=== PATIENT | female | born 1945 ===

== ENCOUNTER 2025-11-03 17:07 | Inpatient (IN) | payer MEDICARE, BC ==
[~2025-11-03] VITALS: Ht 167.6 cm; Wt 75.3 kg
[2025-11-03 17:13] VITALS: BP 147/75
[2025-11-03] MEDS: IV NORMAL SALINE 1000 ML BAG IV ONE (17:45)
[2025-11-03] MEDS ORDERED: MAGN200T5 PO (17:52)
[2025-11-03] MEDS ORDERED: OMEG-49 PO (17:52)
[2025-11-03] MEDS ORDERED: METO25TA3 PO (17:52)
[2025-11-03] MEDS ORDERED: CLOP-31 PO (17:52)
[2025-11-03] MEDS ORDERED: CHOL500050 PO (17:52)
[2025-11-03] MEDS ORDERED: VITA400T9 PO (17:52)
[2025-11-03] MEDS ORDERED: BUPR100T5 PO (17:52)
[2025-11-03] MEDS ORDERED: PRAM0.129 PO (17:52)
[2025-11-03] MEDS ORDERED: PANT20TA2 PO (17:52)
[2025-11-03] MEDS ORDERED: PREG100C PO (17:52)
[2025-11-03] MEDS ORDERED: ACYC-106 PO (17:52)
[2025-11-03] MEDS ORDERED: gemtesa PO (17:52)
[2025-11-03] MEDS ORDERED: CARB1TAB33 PO ×2 (17:52)
[2025-11-03] MEDS ORDERED: ASPI81TA31 PO (17:52)
[2025-11-03] MEDS ORDERED: TRAZ-182 PO (17:52)
[2025-11-03] MEDS ORDERED: MELA10TA3 PO (17:52)
[2025-11-03] MEDS ORDERED: ASCO500C18 PO (17:52)
[2025-11-03] MEDS ORDERED: ATOR80TA PO (17:52)
[2025-11-03] MEDS ORDERED: PREG-233 PO (17:52)
[2025-11-03 18:10] LABS: PLATELET COUNT (AUTO) 228 K/uL (179-408); RED BLOOD CELL COUNT(AUTO) 4.26 MIL/uL (3.63-4.92); RED CELL DISTRIBUTION WIDTH 14.4 % (12.3-17.7); WHITE BLOOD COUNT (AUTO) 8.3 K/uL (3.8-11.8)
[2025-11-03 18:16] LABS: CREATININE 0.9 mg/dL (0.6-1.3); SODIUM SERUM 140 mmol/L (136-145); UREA NITROGEN, BLOOD 21 mg/dL (7-18)
[2025-11-03] MEDS ORDERED: PRAM0.7519 PO (18:24)
[2025-11-03] MEDS ORDERED: MELA5TAB20 PO (18:29)
[2025-11-03] MEDS ORDERED: MELA3TAB41 PO (18:29)
[2025-11-03] MEDS ORDERED: ONDANSETRON 4 MG/2 ML VIAL IV PRN (18:30)
[2025-11-03] MEDS ORDERED: ACETAMINOPHEN 325 MG TABLET PO PRN (18:30)
[2025-11-03] MEDS ORDERED: NITR0.4T48 SL (18:32)
[2025-11-03] MEDS ORDERED: GLUC500T12 PO (18:34)
[2025-11-03] MEDS ORDERED: [UNRECOGNIZED DRUG - CODE] PO (18:34)
[2025-11-03] MEDS ORDERED: ZINC220T3 PO (18:35)
[2025-11-03] MEDS ORDERED: VITA-287 PO (18:35)
[2025-11-03 19:02] LABS: *BILIRUBIN,URIN NEGATIVE (NEGATIVE); *BLOOD, URINE NEGATIVE (NEGATIVE); *CLARITY,URINE CLEAR (CLEAR); *COLOR,URINE YELLOW (YELLOW); *KETONES,URINE NEGATIVE (NEGATIVE); *PROTEIN,URINE NEGATIVE (NEGATIVE); *UROBILINOGEN,URINE 0.2 E.U./dl (NORMAL); LEUKOCYTE ESTERASE ,URINE NEGATIVE (NEGATIVE); NITRITE, URINE NEGATIVE (NEGATIVE); UGLUCOSE NEGATIVE (NEGATIVE)
[2025-11-03] MEDS: CARBIDOPA/LEVODOPA 25-100MG TABLET PO SCH (20:51)
[2025-11-03] MEDS: ATORVASTATIN 40 MG TABLET PO SCH (20:51)
[2025-11-03] MEDS: PREGABALIN 100 MG CAPSULE PO SCH (20:51)
[2025-11-03] MEDS: TRAZODONE 50 MG TABLET PO SCH (20:51)
[2025-11-03 21:00] VITALS: BP 154/83; TEMP 98.4; O2SAT 97
[2025-11-03] MEDS: PRAMIPEXOLE 0.25 MG TABLET PO SCH (22:07)
[2025-11-04] VITALS: BP 133/71; TEMP 97.6; O2SAT 93
[2025-11-04 04:00] VITALS: BP 144/75; TEMP 98.1; O2SAT 94
[2025-11-04 06:48] LABS: PLATELET COUNT (AUTO) 205 K/uL (179-408); RED BLOOD CELL COUNT(AUTO) 4.04 MIL/uL (3.63-4.92); RED CELL DISTRIBUTION WIDTH 14.0 % (12.3-17.7); WHITE BLOOD COUNT (AUTO) 6.4 K/uL (3.8-11.8)
[2025-11-04 06:57] LABS: ASPARTATE AMINOTRANSFERASE 20 U/L (15-37); CREATININE 0.8 mg/dL (0.6-1.3); SODIUM SERUM 132 mmol/L (136-145); TOTAL PROTEIN, SERUM 6.8 g/dL (6.4-8.2); UREA NITROGEN, BLOOD 16 mg/dL (7-18)
[2025-11-04 08:12] VITALS: BP 133/76; TEMP 97.9; O2SAT 93
[2025-11-04] MEDS: buPROPion SR 100 MG TABLET.SA PO SCH (08:49)
[2025-11-04] MEDS: CARBIDOPA/LEVODOPA 25-100MG TABLET PO SCH (08:49)
[2025-11-04] MEDS: METOPROLOL SUCCINATE XL 25 MG TAB.SR.24H PO SCH (08:50)
[2025-11-04] MEDS: ACYCLOVIR 200 MG CAPSULE PO SCH (08:50)
[2025-11-04] MEDS: ASCORBIC ACID 500 MG TABLET PO SCH (08:51)
[2025-11-04] MEDS: ASPIRIN 81 MG TAB.CHEW PO SCH (08:51)
[2025-11-04] MEDS: CLOPIDOGREL 75 MG TABLET PO SCH (08:56)
[2025-11-04] MEDS ORDERED: CARBIDOPA/LEVODOPA 25-100MG TABLET PO SCH (09:00)
[2025-11-04 11:40] VITALS: BP 131/64; TEMP 98.8; O2SAT 93
== END 2025-11-04 14:15 | DRG 305 ==
LOC: ER 17:20 → TELE3 20:06
PROVIDERS: ADMIT Internal Medicine; ATTEND Internal Medicine
DX: I10 Essential (primary) hypertension (principal); G20.A1 Parkinson's disease without dyskinesia, without mention of fluctuations; E78.5 Hyperlipidemia, unspecified; Z79.02 Long term (current) use of antithrombotics/antiplatelets; E86.0 Dehydration; I25.10 Atherosclerotic heart disease of native coronary artery without angina pectoris; Z95.5 Presence of coronary angioplasty implant and graft; Z79.899 Other long term (current) drug therapy; R53.1 Weakness; Z79.82 Long term (current) use of aspirin
CPT/HCPCS: 36415; 71045; 83735; 84100; 84443; 84484; 85025; 93307; G0378; J7040